=== PATIENT | female | born 1970 | race Caucasian/White ===

== ENCOUNTER 2016-02-29 18:33 | Inpatient (IN) | payer MEDICAID ==
[~2016-02-29] VITALS: Ht 162.6 cm; Wt 90.7 kg
[2016-02-29] MEDS ORDERED: OPTIRAY 350 100 ML VIAL HMH IV ONE (18:34)
[2016-02-29] MEDS ORDERED: ONDANSETRON 4 MG VIAL ONE ×2 (20:18→22:53)
[2016-02-29] MEDS ORDERED: SODIUM CHLORIDE 0.9% 1,000 ML ONE (20:18)
[2016-02-29] MEDS ORDERED: DILAUDID 1 MG/ML AMP ONE ×2 (20:18→22:53)
[2016-02-29] MEDS ORDERED: SODIUM CHLORIDE 0.9% 100 ML IV ONE (22:44)
[2016-02-29] MEDS ORDERED: CEFTRIAXONE 1 GM VIAL ONE (22:44)
[2016-02-29] MEDS ORDERED: DICYCLOMINE 20MG/2ML VIAL IM ONE (22:53)
[2016-02-29] MEDS ORDERED: BISACODYL EC 5 MG TAB PO PRN (23:50)
[2016-02-29] MEDS ORDERED: BISACODYL 10 MG SUPP RECTAL PRN (23:50)
[2016-02-29] MEDS ORDERED: SALINE FLUSH 10 ML FLUSH PRN (23:50)
[2016-02-29] MEDS ORDERED: MAG HYDROX 30 ML UDC PO PRN (23:50)
[2016-03-01] VITALS (8 sets, daily range): BP systolic 100–112; RESP 16–18; TEMP 97.4–98.4; Ht 162.6 cm; Wt 90.7 kg
[2016-03-01] MEDS ORDERED: DILAUDID 1 MG/ML AMP ONE (00:07)
[2016-03-01] MEDS: MORPHINE 4 MG/ML SYR IV PRN ×4 (01:10→21:28)
[2016-03-01] MEDS: ONDANSETRON 4 MG VIAL IV PUSH PRN ×4 (01:10→21:27)
[2016-03-01] MEDS: SODIUM CHLORIDE 0.9% FLUSH BAG 500 ML IV SCH (05:27)
[2016-03-01] MEDS: METRONIDAZOLE 500MG/100ML 100 ML IV SCH ×3 (08:52→22:46)
[2016-03-01] MEDS: FAMOTIDINE 20 MG INJ IV SCH ×2 (08:52→19:41)
[2016-03-01] MEDS: SALINE FLUSH 10 ML FLUSH SCH ×2 (08:53→19:41)
[2016-03-01] MEDS: CEFTRIAXONE 1 GM in SODIUM CHLORIDE 0.9% 50 ML IV SCH (09:37)
[2016-03-01] MEDS: SODIUM CHLORIDE 0.9% 1,000 ML IV SCH ×2 (09:37→16:56)
[2016-03-01] MEDS: MORPHINE 2 MG/ML SYR IV PRN ×2 (12:55→16:57)
[2016-03-01] MEDS: ACETAMINOPHEN 325 MG TAB PO PRN (18:32)
[2016-03-02] VITALS (9 sets, daily range): BP systolic 101–122; RESP 16; TEMP 97.8–98.2
[2016-03-02] MEDS: MORPHINE 2 MG/ML SYR IV PRN ×2 (01:22→22:19)
[2016-03-02] MEDS: SODIUM CHLORIDE 0.9% 1,000 ML IV SCH (03:50)
[2016-03-02] MEDS: ACETAMINOPHEN 325 MG TAB PO PRN (03:50)
[2016-03-02] MEDS: SODIUM CHLORIDE 0.9% FLUSH BAG 500 ML IV SCH (05:16)
[2016-03-02] MEDS: MORPHINE 4 MG/ML SYR IV PRN ×3 (06:16→18:09)
[2016-03-02] MEDS: SALINE FLUSH 10 ML FLUSH SCH ×2 (08:03→20:13)
[2016-03-02] MEDS: FAMOTIDINE 20 MG INJ IV SCH ×2 (08:03→20:12)
[2016-03-02] MEDS: METRONIDAZOLE 500MG/100ML 100 ML IV SCH ×2 (08:03→15:15)
[2016-03-02] MEDS: CEFTRIAXONE 1 GM in SODIUM CHLORIDE 0.9% 50 ML IV SCH (08:53)
[2016-03-02] MEDS: ONDANSETRON 4 MG VIAL IV PUSH PRN (22:19)
[2016-03-03] VITALS (7 sets, daily range): BP systolic 110–129; RESP 16–20; TEMP 97.7–98.1
[2016-03-03] MEDS: SERTRALINE 100 MG TAB PO SCH ×2 (00:10→20:46)
[2016-03-03] MEDS: METRONIDAZOLE 500MG/100ML 100 ML IV SCH ×2 (00:10→09:28)
[2016-03-03] MEDS: ARIPiprazole 10 MG TABLET PO SCH ×2 (00:10→20:46)
[2016-03-03] MEDS: MORPHINE 2 MG/ML SYR IV PRN ×3 (02:18→13:08)
[2016-03-03] MEDS: ACETAMINOPHEN 325 MG TAB PO PRN (04:22)
[2016-03-03] MEDS: SODIUM CHLORIDE 0.9% FLUSH BAG 500 ML IV SCH (06:31)
[2016-03-03] MEDS: CEFTRIAXONE 1 GM in SODIUM CHLORIDE 0.9% 50 ML IV SCH (07:58)
[2016-03-03] MEDS: FAMOTIDINE 20 MG INJ IV SCH (07:58)
[2016-03-03] MEDS: SALINE FLUSH 10 ML FLUSH SCH ×2 (07:59→20:45)
[2016-03-03] MEDS: FAMOTIDINE 20 MG TAB PO SCH ×2 (13:55→20:46)
[2016-03-03] MEDS: OXYCODONE 5 MG TAB PO PRN (16:54)
[2016-03-03] MEDS: ONDANSETRON 4 MG VIAL IV PUSH PRN (20:46)
[2016-03-04] VITALS (7 sets, daily range): BP systolic 98–153; RESP 16–20; TEMP 97.6–98.1
[2016-03-04] MEDS: SODIUM CHLORIDE 0.9% FLUSH BAG 500 ML IV SCH (06:21)
[2016-03-04] MEDS: ACETAMINOPHEN 325 MG TAB PO PRN (07:24)
[2016-03-04] MEDS: CEFTRIAXONE 1 GM in SODIUM CHLORIDE 0.9% 50 ML IV SCH (09:33)
[2016-03-04] MEDS: SALINE FLUSH 10 ML FLUSH SCH ×2 (09:33→21:17)
[2016-03-04] MEDS: FAMOTIDINE 20 MG TAB PO SCH (09:34)
[2016-03-04] MEDS: MORPHINE 2 MG/ML SYR IV PRN ×3 (11:14→21:18)
[2016-03-04] MEDS: ONDANSETRON 4 MG VIAL IV PUSH PRN (14:11)
[2016-03-04] MEDS ORDERED: BISACODYL 10 MG SUPP RECTAL ONE (14:35)
[2016-03-04] MEDS: SODIUM CHLORIDE 0.9% 1,000 ML IV SCH (15:06)
[2016-03-04] MEDS ORDERED: FLUCONAZOLE 150 MG TAB PO ONE (15:45)
[2016-03-04] MEDS: FAMOTIDINE 20 MG INJ IV SCH (21:17)
[2016-03-04] MEDS: SERTRALINE 100 MG TAB PO SCH (21:17)
[2016-03-04] MEDS: ARIPiprazole 10 MG TABLET PO SCH (21:17)
[2016-03-05] MEDS: SODIUM CHLORIDE 0.9% 1,000 ML IV SCH ×2 (01:28→12:00)
[2016-03-05 03:22] VITALS: BP_SYST 106; RESP 16; TEMP 97.9
[2016-03-05] MEDS: SODIUM CHLORIDE 0.9% FLUSH BAG 500 ML IV SCH (06:00)
[2016-03-05] MEDS: MORPHINE 2 MG/ML SYR IV PRN ×4 (06:04→20:19)
[2016-03-05 07:44] VITALS: BP_SYST 124; RESP 18; TEMP 98
[2016-03-05] MEDS: SALINE FLUSH 10 ML FLUSH SCH ×2 (07:46→20:20)
[2016-03-05] MEDS: CEFTRIAXONE 1 GM in SODIUM CHLORIDE 0.9% 50 ML IV SCH (07:47)
[2016-03-05] MEDS: FAMOTIDINE 20 MG INJ IV SCH ×2 (07:47→20:20)
[2016-03-05 11:18] VITALS: BP_SYST 108; RESP 16; TEMP 98
[2016-03-05 15:13] VITALS: BP_SYST 127; RESP 20; TEMP 98.1
[2016-03-05 19:40] VITALS: BP_SYST 112; RESP 16; TEMP 98.1
[2016-03-05] MEDS: SERTRALINE 100 MG TAB PO SCH (20:20)
[2016-03-05] MEDS: ARIPiprazole 10 MG TABLET PO SCH (20:20)
[2016-03-05] MEDS: ONDANSETRON 4 MG VIAL IV PUSH PRN (20:29)
[2016-03-05 23:12] VITALS: BP_SYST 113; RESP 16; TEMP 97.6
[2016-03-06] MEDS: MORPHINE 2 MG/ML SYR IV PRN ×4 (01:39→18:46)
[2016-03-06] MEDS: SODIUM CHLORIDE 0.9% 1,000 ML IV SCH ×2 (02:48→13:59)
[2016-03-06 03:13] VITALS: BP_SYST 128; RESP 16; TEMP 97.5
[2016-03-06] MEDS: SODIUM CHLORIDE 0.9% FLUSH BAG 500 ML IV SCH (04:27)
[2016-03-06] MEDS: FAMOTIDINE 20 MG INJ IV SCH ×2 (07:34→20:39)
[2016-03-06] MEDS: SALINE FLUSH 10 ML FLUSH SCH ×2 (07:35→20:39)
[2016-03-06 07:36] VITALS: BP_SYST 130; RESP 18; TEMP 97.5
[2016-03-06] MEDS: CEFTRIAXONE 1 GM in SODIUM CHLORIDE 0.9% 50 ML IV SCH (09:00)
[2016-03-06 11:10] VITALS: BP_SYST 111; RESP 16; TEMP 97.9
[2016-03-06] MEDS: LEVOTHYROXINE 0.025 MG TAB PO SCH (11:23)
[2016-03-06 15:13] VITALS: BP_SYST 104; RESP 16; TEMP 98
[2016-03-06] MEDS: ACETAMINOPHEN 325 MG TAB PO PRN (16:23)
[2016-03-06] MEDS: ONDANSETRON 4 MG VIAL IV PUSH PRN (18:31)
[2016-03-06 20:14] VITALS: BP_SYST 109; RESP 16; TEMP 98.1
[2016-03-06] MEDS: SERTRALINE 100 MG TAB PO SCH (20:39)
[2016-03-06] MEDS: ARIPiprazole 10 MG TABLET PO SCH (20:39)
[2016-03-06] MEDS: OXYCODONE 5 MG TAB PO PRN (20:48)
[2016-03-06] MEDS ORDERED: TRAZODONE 50 MG TAB PO SCH (21:00)
[2016-03-06 23:21] VITALS: BP_SYST 105; RESP 16; TEMP 97.5
[2016-03-07] MEDS: SODIUM CHLORIDE 0.9% 1,000 ML IV SCH (00:04)
[2016-03-07] MEDS: SODIUM CHLORIDE 0.9% FLUSH BAG 500 ML IV SCH (02:27)
[2016-03-07 03:13] VITALS: BP_SYST 114; RESP 16; TEMP 97.8
[2016-03-07 07:32] VITALS: BP_SYST 126; RESP 15; TEMP 97.9
[2016-03-07] MEDS: LEVOTHYROXINE 0.025 MG TAB PO SCH (07:52)
[2016-03-07] MEDS: SALINE FLUSH 10 ML FLUSH SCH (07:53)
[2016-03-07] MEDS: FAMOTIDINE 20 MG INJ IV SCH (07:53)
[2016-03-07] MEDS: MORPHINE 2 MG/ML SYR IV PRN (07:58)
[2016-03-07] MEDS ORDERED: LEVOFLOXACIN 500 MG TAB PO SCH (09:00)
[2016-03-07] MEDS ORDERED: PANTOPRAZOLE 40 MG TAB PO SCH (11:04)
[2016-03-07 11:32] VITALS: BP_SYST 114; RESP 15; TEMP 98.2
[2016-03-07] MEDS: OXYCODONE 5 MG TAB PO PRN (14:17)
[2016-03-07 15:18] VITALS: BP_SYST 114; RESP 15; TEMP 98.2
[2016-03-07] MEDS: ONDANSETRON 4 MG VIAL IV PUSH PRN (15:39)
== END 2016-03-07 16:07 | disposition home or self-care (01) | DRG 389 ==
LOC: ENRESERVTM → ENRESERVDT → ER 18:33 → EMR 22:51 → 5THW 03-01 01:03 → OBSVTOIN 03-03 09:17 → ENPENDDIS 03-03 09:17
PROVIDERS: ADMIT Internal Medicine; ATTEND Internal Medicine
DX: K56.60 Unspecified intestinal obstruction (principal); N39.0 Urinary tract infection, site not specified; A08.4 Viral intestinal infection, unspecified; B96.20 Unspecified Escherichia coli [E. coli] as the cause of diseases classified elsewhere; Z98.84 Bariatric surgery status; K59.09 Other constipation; F32.9 Major depressive disorder, single episode, unspecified; K21.9 Gastro-esophageal reflux disease without esophagitis
CPT/HCPCS: 36415; 74000; 74020; 74177; 74249; 80048; 80053; 81001; 83690; 84439; 84443; 85025; 87077; 87088; 87186; 87493; 96361; 96365; 96372; 96375; 96376; 99232; 99233